=== PATIENT | female | born 1990 | race African-American/Black ===

== ENCOUNTER 2017-04-07 16:04 | Emergency (ER) | payer MEDICAID ==
[~2017-04-07] VITALS: Ht 162.6 cm; Wt 54.0 kg
[2017-04-07 16:21] VITALS: BP 116/67
== END 2017-04-07 21:25 | disposition left against medical advice (07) ==
LOC: ER 16:04
DX: N89.8 Other specified noninflammatory disorders of vagina (principal); Z53.21 Procedure and treatment not carried out due to patient leaving prior to being seen by health care provider

== ENCOUNTER 2018-10-21 15:53 | Emergency (ER) | payer MEDICAID ==
[~2018-10-21] VITALS: Ht 162.6 cm; Wt 52.0 kg
[2018-10-21] MEDS ORDERED: IBUPROFEN 600MG TABLET PO ONE (16:30)
[2018-10-21] MEDS ORDERED: HYDROCODONE/ACETAMINOPHEN 5/325MG TABLET PO ONE (16:30)
[2018-10-21 16:36] VITALS: BP 118/71
[2018-10-21] MEDS ORDERED: CLINDAMYCIN HCL 150MG CAPSULE PO SCH (18:00)
== END 2018-10-21 17:18 | disposition home or self-care (01) ==
LOC: ER 16:14
DX: K04.7 Periapical abscess without sinus (principal)
CPT/HCPCS: 99283

== ENCOUNTER 2020-05-04 11:19 | Emergency (ER) | payer MEDICAID ==
[~2020-05-04] VITALS: Ht 162.6 cm; Wt 47.0 kg
[2020-05-04 12:10] VITALS: BP 109/73
== END 2020-05-04 13:32 | disposition home or self-care (01) ==
LOC: ER 11:19
DX: N64.4 Mastodynia (principal)
CPT/HCPCS: 81025; 99282